=== PATIENT | male | born 1975 ===

== ENCOUNTER 2016-07-10 19:26 | Inpatient (IN) | payer OTHER ==
--- NOTE | 2016-07-10 21:21 | HP ---
CIWA Score - CIWA Score Nausea/Vomitin-Mild Nausea/No Vomiting Muscle Tremors: 4-Moderate,w/Arms Extend Anxiety: 4-Mod. Anxious/Guarded Agitation: 4-Moderately Restless Paroxysmal Sweats: 1-Minimal Palms Moist Orientation: 1-Uncertain about Date Tacttile Disturbances: 0-None Auditory Disturbances: 0-None Visual Disturbances: 0-None Headache: 0-None Present CIWA-Ar Total Score: 15 Admission ROS BHS - HPI Chief Complaint: WITHDRAWAL SX Allergies/Adverse Reactions: Allergies Allergy/AdvReac Type Severity Reaction Status Date / Time No Known Allergies Allergy Verified 02/04/16 16:00 History of Present Illness: 41 YEARS OLD MALE WITH LONG HISTORY OF ALCOHOL DEPENDENCE,HAS ARTHRITIS OF THE LEGS AND BACK, HAS DEPRESSION IS ADMITTED TO DETOX Exam Limitations: No Limitations - Ebola screening Have you traveled outside of the country in the last 21 days: No Have you had contact with anyone from an Ebola affected area: No Have you been sick,other than usual withdrawal symptoms: No Do you have a fever: No - Review of Systems Constitutional: Chills, Changes in sleep, Weight Stable EENT: reports: No Symptoms Reported Respiratory: reports: No Symptoms reported Cardiac: reports: No Symptoms Reported GI: reports: Nausea, Poor Fluid Intake, Vomiting, Abdominal cramping : reports: No Symptoms Reported Musculoskeletal: reports: Back Pain, Joint Pain (KNEES) Integumentary: reports: No Symptoms Reported Neuro: reports: Tremors Endocrine: reports: No Symptoms Reported Hematology: reports: No Symptoms Reported Psychiatric: reports: Judgement Intact, Anxious, Depressed Other Systems: Reviewed and Negative Patient History - Patient Medical History Hx Anemia: No Hx Asthma: No Hx Chronic Obstructive Pulmonary Disease (COPD): No Hx Cancer: No Hx Cardiac Disorders: No Hx Congestive Heart Failure: No Hx Hypertension: No Hx Hypercholesterolemia: No Hx Pacemaker: No HX Cerebrovascular Accident: No Hx Seizures: No Hx Dementia: No Hx Diabetes: No Hx Gastrointestinal Disorders: No Hx Liver Disease: No Hx Genitourinary Disorders: No Hx Sexually Transmitted Disorders: No Hx Renal Disease (ESRD): No Hx Thyroid Disease: No Hx Human Immunodeficiency Virus (HIV): No (NEG HX ) Hx Hepatitis C: No Hx Depression: Yes Hx Suicide Attempt: No Hx Bipolar Disorder: No Hx Schizophrenia: No - Patient Surgical History Past Surgical History: No - PPD History Previous Implant?: Yes Documented Results: Negative w/proof Implanted On Prior [facility] Admission?: Yes Date: 02/07/16 PPD to be Administered?: No - Smoking Cessation Smoking history: Never smoked Have you smoked in the past 12 months: No Aproximately how many cigarettes per day: 0 Hx Chewing Tobacco Use: No Initiated information on smoking cessation: No - Substance & Tx. History Hx Alcohol Use: Yes Hx Substance Use: No Substance Use Type: Alcohol Hx Substance Use Treatment: Yes - Substances Abused Alcohol Route: Oral Frequency: Daily Amount used: VOLKA 1L Age of first use: 18 Date of Last Use: 07/10/16 Family Disease History - Family Disease History Family Disease History: Diabetes: Father, Heart Disease: Father, Respiratory: Father Admission Physical Exam [facility] - Physical General Appearance: Yes: Nourished, Appropriately Dressed, Mild Distress, Alcohol on Breath, Tremorous, Irritable, Sweating, Anxious HEENTM: Yes: Hearing grossly Normal, Normal ENT Inspection, Normocephalic, Normal Voice Respiratory: Yes: Chest Non-Tender, Lungs Clear, Normal Breath Sounds, No Respiratory Distress, No Accessory Muscle Use Neck: Yes: Supple, Trachea in good position Breast: Yes: Breasts Symetrical Cardiology: Yes: Regular Rhythm, S1, S2, Tachycardia Abdominal: Yes: Non Tender, Soft Genitourinary: Yes: Within Normal Limits Back: Yes: Normal Inspection Musculoskeletal: Yes: full range of Motion, Gait Steady, Back pain Extremities: Yes: Normal Range of Motion, Non-Tender, Tremors Neurological: Yes: Alert, Motor Strength 5/5, Normal Response, Depressed Affect Integumentary: Yes: Warm Lymphatic: Yes: Within Normal Limits - Diagnostic (1) Alcohol dependence with uncomplicated withdrawal Current Visit: Yes Status: Acute (2) Arthritis Current Visit: Yes Status: Chronic Comment: BACK + LEGS (3) Anxiety Current Visit: Yes Status: Suspected Comment: PANIC ATTACK Cleared for Admission [facility] - Detox or Rehab [facility] Level of Care: Medically Managed Detox Regimen/Protocol: Librium [facility] Breath Alcohol Content Breath Alcohol Content: 0.416 Vital Signs - Vital Signs Vital Signs Refused: No Temperature: 98.6 F Temperature Source: Oral Pulse Rate: 119 Respiratory Rate: 20 Blood Pressure: 137/103 BP Location: Left Arm Blood Pressure Position: Sitting - Height Height: 5 ft 11 in - Weight Weight: 191 lb Weight Measurement Method: Standing Scale Body Mass Index (BMI): 26.6 - Bowel Function Bowel Movement: Yes Urine Drug Screen - Control Is Test Valid: Yes - Results Drug Screen Negative: Yes
[2016-07-10 21:22] VITALS: BMI 26.6
[2016-07-10] MEDS ORDERED: MAGNESIUM HYDROX 2400MG/30ML ORAL SUSPENSION 30 ML CUP PO PRN (21:27)
[2016-07-10] MEDS ORDERED: chlordiazePOXIDE HCL 25 MG CAPSULE PO ONE (21:27)
[2016-07-10] MEDS ORDERED: MAG HYDROX/AL HYDROX/SIMETH 30 ML UNIT-DOSE CUP PO PRN (21:27)
[2016-07-10] MEDS ORDERED: MENTHOL/PHENOL 1 EACH UD MM PRN (21:27)
[2016-07-10] MEDS ORDERED: MAGNESIUM CITRATE 300 ML BOTTLE PO PRN (21:27)
[2016-07-10] MEDS ORDERED: P-EPHED 60MG/TRIPROLIDI 2.5MG TABLET PO PRN (21:27)
[2016-07-10] MEDS ORDERED: ACETAMINOPHEN 325 MG TABLET (FP) PO PRN (21:27)
[2016-07-10] MEDS ORDERED: LOPERAMIDE HCL 2 MG CAPSULE PO PRN (21:27)
[2016-07-10] MEDS ORDERED: guaiFENesin/D-METHORPHAN HB 10 ML UNIT-DOSE CUPS PO PRN (21:27)
[2016-07-10] MEDS ORDERED: hydrOXYzine PAMOATE 50 MG CAPSULE (FP) PO PRN (21:27)
[2016-07-10] MEDS: diphenhydrAMINE HCL 50 MG CAPSULE PO PRN (22:22)
[2016-07-10] MEDS: chlordiazePOXIDE HCL 25 MG CAPSULE PO SCH (22:23)
[2016-07-10] MEDS: THIAMINE HCL 100 MG TABLET (FP) PO SCH (22:25)
[2016-07-11] MEDS: chlordiazePOXIDE HCL 25 MG CAPSULE PO SCH ×4 (05:32→22:42)
[2016-07-11] MEDS: chlordiazePOXIDE HCL 25 MG CAPSULE PO PRN (07:30)
--- NOTE | 2016-07-11 09:49 | PN ---
BHS CIWA - CIWA Score Nausea/Vomitin Muscle Tremors: 7-Severe,w/o Arm Extended Anxiety: 5 Agitation: 5 Paroxysmal Sweats: 4-Forehead w/Sweat Beads Orientation: 0-Oriented Tacttile Disturbances: 1-Very Mild Itch/Numbness Auditory Disturbances: 0-None Visual Disturbances: 0-None Headache: 0-None Present CIWA-Ar Total Score: 24 BHS Progress Note (SOAP) Subjective: Gross tremors,sweating,interrupted sleep,anxiety,restless. Objective: 07/11/16 09:49 Vital Signs - 8 hr 07/11/16 07/11/16 07/11/16 03:23 06:13 09:27 Temperature 98.4 F 97.1 F L Pulse Rate 112 H 107 H 109 H Respiratory 16 71 H Rate Blood Pressure 138/92 152/105 Assessment: 07/11/16 09:49 Withdrawal sx. Plan: Continue detox
[2016-07-11 10:02] LABS: URINE APPEARANCE CLEAR; URINE BILIRUBIN NEGATIVE (NEGATIVE); URINE COLOR YELLOW; URINE GLUCOSE (UA) NEGATIVE (NEGATIVE); URINE KETONE TRACE (NEGATIVE); URINE LEUK ESTERASE NEGATIVE (NEGATIVE); URINE NITRITE NEGATIVE (NEGATIVE); URINE UROBILINOGEN 2.0 E.U/dl E.U./dl (0.2-1.0)
[2016-07-11 10:20] LABS: ALK PHOS 71 U/L (45-117); ANION GAP 15 (8-16); BILIRUBIN,TOTAL 0.7 mg/dL (0.2-1.0); CALCIUM 9.5 mg/dL (8.5-10.1); CO2 24 mmol/L (21-32); COCKROFT - GAULT 129.68; CREATININE 0.9 mg/dL (0.7-1.3); GLUCOSE,RANDOM 101 mg/dL (74-106); SGOT/AST 170 U/L (15-37); SGPT/ALT 196 U/L (12-78); TOT PROT 7.2 g/dl (6.4-8.2)
[2016-07-11 10:28] LABS: MCH 34.9 pg (25.7-33.7); MCHC 34.3 g/dl (32.0-35.9); MEAN CELL VOLUME 101.8 fl (80-96); MEAN PLT VOLUME 8.7 fl (7.5-11.1); PLATELET COUNT 140 K/MM3 (134-434); RDW 13.7 % (11.9-15.9); WHITE BLOOD COUNT 3.3 K/mm3 (4.0-10.0)
[2016-07-11] MEDS: LIDOCAINE 5% TOPICAL PATCH TP SCH (10:57)
[2016-07-11] MEDS: PRENATAL VITAMINS W/ FOLIC ACID TABLET (FP) PO SCH (10:57)
--- NOTE | 2016-07-11 11:32 | CONSULT ---
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 Last drink on 07/10/16 Medical History: Significant for arthritis both knees, ankles and back Psychiatric History: Reports that when he left here early last January, he went to a place where he saw a psychologist. Claims that he was given some medication for anxiety but does not recall name. Reports feeling depressed at present but sleeps well Mental Status Exam - Mental Status Exam Alert and Oriented to: Time, Place, Person Cognitive Function: Fair Patient Appearance: Well Groomed Mood: Depressed Affect: Constricted Patient Behavior: Cooperative Speech Pattern: Clear Voice Loudness: Normal Thought Process: Intact, Goal Oriented Thought Disorder: Not Present Hallucinations: Denies Suicidal Ideation: Denies Homicidal Ideation: Denies Insight/Judgement: Poor Sleep: Well Appetite: Good Muscle strength/Tone: Normal Gait/Station: Normal Psychiatric Findings - Problem List ([place] 1, 2,3) (1) Alcohol-induced mood disorder Current Visit: Yes Status: Acute (2) Alcohol dependence with uncomplicated withdrawal Current Visit: Yes Status: Acute (3) Arthritis Current Visit: Yes Status: Chronic Comment: BACK + LEGS (4) Back spasm Current Visit: No Status: Acute - Initial Treatment Plan Initial Treatment Plan: Continue inpatient detoxification
--- NOTE | 2016-07-11 11:37 | EKG ---
Test Reason : Blood Pressure : / mmHG Vent. Rate : 099 BPM Atrial Rate : 099 BPM P-R Int : 152 ms QRS Dur : 084 ms QT Int : 348 ms P-R-T Axes : 061 035 061 degrees QTc Int : 446 ms NORMAL SINUS RHYTHM POSSIBLE LEFT ATRIAL ENLARGEMENT LEFT VENTRICULAR HYPERTROPHY ABNORMAL ECG NO PREVIOUS ECGS AVAILABLE Confirmed by LUIS CONRAD, ABRAHAM ([id number]) on 07/11/2016 11:36:44 AM Referred By: Alexis An Confirmed By:ABRAHAM SMITH MD
[2016-07-11 11:42] LABS: HIV 1 & 2 AB NEGATIVE; HIV 1 AGp24 NEGATIVE
[2016-07-11 12:18] LABS: URINE BLOOD 1+ (NEGATIVE); URINE PROTEIN 1+ (NEGATIVE)
[2016-07-11 12:21] LABS: URINE MUCUS RARE; URINE RBC 3 /hpf (0-3); URINE WBC 1 /hpf (3-5)
[2016-07-11] MEDS ORDERED: chlordiazePOXIDE HCL 25 MG CAPSULE PO ONE ×2 (14:00→22:55)
[2016-07-11] MEDS: THIAMINE HCL 100 MG TABLET (FP) PO SCH (22:42)
--- NOTE | 2016-07-11 23:55 | PN ---
BHS Progress Note Note: Last Vital Signs Temp Pulse Resp BP Pulse Ox 98.6 F 99 H 18 148/95 07/11/16 22:05 07/11/16 22:05 07/11/16 22:05 07/11/16 22:05
[2016-07-12] MEDS: chlordiazePOXIDE HCL 25 MG CAPSULE PO SCH ×3 (05:22→17:26)
[2016-07-12] MEDS: chlordiazePOXIDE HCL 25 MG CAPSULE PO PRN ×2 (09:06→14:13)
[2016-07-12] MEDS: LIDOCAINE 5% TOPICAL PATCH TP SCH (10:36)
[2016-07-12] MEDS: PRENATAL VITAMINS W/ FOLIC ACID TABLET (FP) PO SCH (10:36)
--- NOTE | 2016-07-12 14:10 | PN ---
[facility] CIWA - CIWA Score Nausea/Vomitin-No Nausea/No Vomiting Muscle Tremors: 4-Moderate,w/Arms Extend Anxiety: 4-Mod. Anxious/Guarded Agitation: 4-Moderately Restless Paroxysmal Sweats: 3 Orientation: 0-Oriented Tacttile Disturbances: 0-None Auditory Disturbances: 0-None Visual Disturbances: 0-None Headache: 0-None Present CIWA-Ar Total Score: 15 BHS Progress Note (SOAP) Subjective: Anxiety,tremors,sweating,interrupted sleep,restless. Objective: 07/12/16 14:08 Vital Signs - 8 hr 07/12/16 07/12/16 07/12/16 06:17 07:42 09:48 Temperature 98.2 F 97.8 F Pulse Rate 96 H 86 104 H Respiratory 18 18 Rate Blood Pressure 155/107 142/86 154/109 07/12/16 13:10 Temperature 96.6 F L Pulse Rate 105 H Respiratory 20 Rate Blood Pressure 140/96 Laboratory Tests 07/11/16 07/11/16 07/11/16 07:00 07:00 07:00 WBC 3.3 L D RBC 3.96 L Hgb 13.8 Hct 40.3 MCV 101.8 H MCHC 34.3 RDW 13.7 D Plt Count 140 MPV 8.7 Sodium 143 Potassium 3.6 Chloride 104 Carbon Dioxide 24 Anion Gap 15 BUN 14 Creatinine 0.9 Creat Clearance w eGFR > 60 Random Glucose 101 Calcium 9.5 Total Bilirubin 0.7 D AST 170 H D ALT 196 H Alkaline Phosphatase 71 D Ammonia Total Protein 7.2 Albumin 4.0 Urine Color Urine Appearance Urine pH Ur Specific [place] Urine Protein Urine Glucose (UA) Urine Ketones Urine Blood Urine Nitrite Urine Bilirubin Urine Urobilinogen Ur Leukocyte Esterase Urine RBC Urine WBC Ur Epithelial Cells Urine Mucus RPR Titer Nonreactive HIV 1&2 Antibody Screen HIV P24 Antigen 07/11/16 07/11/16 07/12/16 07:00 08:00 07:00 WBC RBC Hgb Hct MCV MCHC RDW Plt Count MPV Sodium Potassium Chloride Carbon Dioxide Anion Gap BUN Creatinine Creat Clearance w eGFR Random Glucose Calcium Total Bilirubin AST ALT Alkaline Phosphatase Ammonia 92.13 H Total Protein Albumin Urine Color Yellow Urine Appearance Clear Urine pH 5.0 D Ur Specific [place] >= 1.030 H Urine Protein 1+ H Urine Glucose (UA) Negative Urine Ketones Trace H Urine Blood 1+ H Urine Nitrite Negative Urine Bilirubin Negative Urine Urobilinogen 2.0 e.u/dl Ur Leukocyte Esterase Negative Urine RBC 3 Urine WBC 1 Ur Epithelial Cells Rare Urine Mucus Rare RPR Titer HIV 1&2 Antibody Screen Negative HIV P24 Antigen Negative labs noted Assessment: 07/12/16 14:09 Withdrawal sx. Plan: Continue detox
[2016-07-12] MEDS: LACTULOSE 20 GM/30 ML UDC (FOR ORAL USE ONLY) PO SCH ×2 (15:35→23:06)
[2016-07-12] MEDS: cloNIDine HCL 0.1 MG TABLET PO PRN ×2 (20:41)
[2016-07-12] MEDS: NAPROXEN 500 MG TABLET (FP) PO PRN (20:43)
[2016-07-12] MEDS: THIAMINE HCL 100 MG TABLET (FP) PO SCH (23:06)
[2016-07-12] MEDS: chlordiazePOXIDE 5 MG CAPSULE PO SCH (23:06)
[2016-07-12] MEDS: diphenhydrAMINE HCL 50 MG CAPSULE PO PRN (23:07)
[2016-07-13] MEDS: chlordiazePOXIDE 5 MG CAPSULE PO SCH ×3 (05:38→17:48)
[2016-07-13] MEDS: CYCLOBENZAPRINE HCL 10 MG TABLET (FP) PO PRN ×2 (08:02→17:48)
[2016-07-13 10:20] LABS: SGOT/AST 78 U/L (15-37); SGPT/ALT 142 U/L (12-78)
[2016-07-13] MEDS: LIDOCAINE 5% TOPICAL PATCH TP SCH (10:38)
[2016-07-13] MEDS: PRENATAL VITAMINS W/ FOLIC ACID TABLET (FP) PO SCH (10:39)
[2016-07-13] MEDS: LACTULOSE 20 GM/30 ML UDC (FOR ORAL USE ONLY) PO SCH ×2 (10:40→22:37)
[2016-07-13] MEDS: cloNIDine HCL 0.1 MG TABLET PO PRN ×2 (13:39→22:38)
--- NOTE | 2016-07-13 17:36 | PN ---
BHS Progress Note (SOAP) Subjective: Interrupted sleep, Tremors, Body Aches, Anxious. Objective: PT. A & O X 3, OBSERVED AMBULATING ON UNIT. PT. DENIES CHEST PAIN. 07/13/16 17:33 Vital Signs Temperature 98.2 F 07/13/16 13:02 Pulse Rate 95 H 07/13/16 13:02 Respiratory Rate 18 07/13/16 13:02 Blood Pressure 130/95 07/13/16 13:02 O2 Sat by Pulse Oximetry (%) Laboratory Tests 07/11/16 07/11/16 07/11/16 07:00 07:00 07:00 WBC 3.3 L D RBC 3.96 L Hgb 13.8 Hct 40.3 MCV 101.8 H MCHC 34.3 RDW 13.7 D Plt Count 140 MPV 8.7 Sodium 143 Potassium 3.6 Chloride 104 Carbon Dioxide 24 Anion Gap 15 BUN 14 Creatinine 0.9 Creat Clearance w eGFR > 60 Random Glucose 101 Calcium 9.5 Total Bilirubin 0.7 D AST 170 H D ALT 196 H Alkaline Phosphatase 71 D Ammonia Total Protein 7.2 Albumin 4.0 Urine Color Urine Appearance Urine pH Ur Specific [place] Urine Protein Urine Glucose (UA) Urine Ketones Urine Blood Urine Nitrite Urine Bilirubin Urine Urobilinogen Ur Leukocyte Esterase Urine RBC Urine WBC Ur Epithelial Cells Urine Mucus RPR Titer Nonreactive HIV 1&2 Antibody Screen HIV P24 Antigen 07/11/16 07/11/16 07/12/16 07:00 08:00 07:00 WBC RBC Hgb Hct MCV MCHC RDW Plt Count MPV Sodium Potassium Chloride Carbon Dioxide Anion Gap BUN Creatinine Creat Clearance w eGFR Random Glucose Calcium Total Bilirubin AST ALT Alkaline Phosphatase Ammonia 92.13 H Total Protein Albumin Urine Color Yellow Urine Appearance Clear Urine pH 5.0 D Ur Specific [place] >= 1.030 H Urine Protein 1+ H Urine Glucose (UA) Negative Urine Ketones Trace H Urine Blood 1+ H Urine Nitrite Negative Urine Bilirubin Negative Urine Urobilinogen 2.0 e.u/dl Ur Leukocyte Esterase Negative Urine RBC 3 Urine WBC 1 Ur Epithelial Cells Rare Urine Mucus Rare RPR Titer HIV 1&2 Antibody Screen Negative HIV P24 Antigen Negative 07/13/16 07/13/16 07:50 07:50 WBC RBC Hgb Hct MCV MCHC RDW Plt Count MPV Sodium Potassium Chloride Carbon Dioxide Anion Gap BUN Creatinine Creat Clearance w eGFR Random Glucose Calcium Total Bilirubin AST 78 H D ALT 142 H D Alkaline Phosphatase Ammonia 57.09 H Total Protein Albumin Urine Color Urine Appearance Urine pH Ur Specific [place] Urine Protein Urine Glucose (UA) Urine Ketones Urine Blood Urine Nitrite Urine Bilirubin Urine Urobilinogen Ur Leukocyte Esterase Urine RBC Urine WBC Ur Epithelial Cells Urine Mucus RPR Titer HIV 1&2 Antibody Screen HIV P24 Antigen LABS NOTED. [facility]MON[facility] LEVEL FROM 07/13/2016 NOTED. 07/13/16 17:35 Assessment: 07/13/16 17:35 WITHDRAWAL SYMPTOMS. Plan: CONTINUE DETOX. ADVISED PATIENT TO FOLLOW-UP WITH DIRECTOR OF TRAUMA AFTER DISCHARGE FROM DETOX FOR GENERAL MEDICAL ASSESSMENT AND FOR ELEVATED ADMISSION [facility]EL.
[2016-07-13] MEDS: NAPROXEN 500 MG TABLET (FP) PO PRN (19:40)
[2016-07-13] MEDS: THIAMINE HCL 100 MG TABLET (FP) PO SCH (22:37)
[2016-07-13] MEDS: chlordiazePOXIDE HCL 10 MG CAPSULE PO SCH (22:37)
[2016-07-14] MEDS: chlordiazePOXIDE HCL 10 MG CAPSULE PO SCH (05:39)
[2016-07-14] MEDS: CYCLOBENZAPRINE HCL 10 MG TABLET (FP) PO PRN (05:40)
[2016-07-14] MEDS: cloNIDine HCL 0.1 MG TABLET PO PRN (05:40)
[2016-07-14 09:19] VITALS: BP 142/100; PULSE 77; TEMP 96.4
--- NOTE | 2016-07-14 13:15 | DS ---
[facility] Detox Discharge Summary Admission Date: 07/10/16 Discharge Date: 07/14/16 - History Present History: Alcohol Dependence Pertinent Past History: Denies pmhx - Physical Exam Results Vital Signs: Vital Signs Temperature 96.4 F L 07/14/16 09:18 Pulse Rate 77 07/14/16 09:18 Respiratory Rate 18 07/14/16 09:18 Blood Pressure 142/100 07/14/16 09:18 O2 Sat by Pulse Oximetry (%) Pertinent Admission Physical Exam Findings: Withdrawal symptoms Laboratory Tests 07/11/16 07/11/16 07/11/16 07:00 07:00 07:00 WBC 3.3 L D RBC 3.96 L Hgb 13.8 Hct 40.3 MCV 101.8 H MCHC 34.3 RDW 13.7 D Plt Count 140 MPV 8.7 Sodium 143 Potassium 3.6 Chloride 104 Carbon Dioxide 24 Anion Gap 15 BUN 14 Creatinine 0.9 Creat Clearance w eGFR > 60 Random Glucose 101 Calcium 9.5 Total Bilirubin 0.7 D AST 170 H D ALT 196 H Alkaline Phosphatase 71 D Ammonia Total Protein 7.2 Albumin 4.0 Urine Color Urine Appearance Urine pH Ur Specific [place] Urine Protein Urine Glucose (UA) Urine Ketones Urine Blood Urine Nitrite Urine Bilirubin Urine Urobilinogen Ur Leukocyte Esterase Urine RBC Urine WBC Ur Epithelial Cells Urine Mucus RPR Titer Nonreactive HIV 1&2 Antibody Screen HIV P24 Antigen 07/11/16 07/11/16 07/12/16 07:00 08:00 07:00 WBC RBC Hgb Hct MCV MCHC RDW Plt Count MPV Sodium Potassium Chloride Carbon Dioxide Anion Gap BUN Creatinine Creat Clearance w eGFR Random Glucose Calcium Total Bilirubin AST ALT Alkaline Phosphatase [place] 92.13 H Total Protein Albumin Urine Color Yellow Urine Appearance Clear Urine pH 5.0 D Ur Specific [place] >= 1.030 H Urine Protein 1+ H Urine Glucose (UA) Negative Urine Ketones Trace H Urine Blood 1+ H Urine Nitrite Negative Urine Bilirubin Negative Urine Urobilinogen 2.0 e.u/dl Ur Leukocyte Esterase Negative Urine RBC 3 Urine WBC 1 Ur Epithelial Cells Rare Urine Mucus Rare RPR Titer HIV 1&2 Antibody Screen Negative HIV P24 Antigen Negative 07/13/16 07/13/16 07:50 07:50 WBC RBC Hgb Hct MCV MCHC RDW Plt Count MPV Sodium Potassium Chloride Carbon Dioxide Anion Gap BUN Creatinine Creat Clearance w eGFR Random Glucose Calcium Total Bilirubin AST 78 H D ALT 142 H D Alkaline Phosphatase Ammonia 57.09 H Total Protein Albumin Urine Color Urine Appearance Urine pH Ur Specific [place] Urine Protein Urine Glucose (UA) Urine Ketones Urine Blood Urine Nitrite Urine Bilirubin Urine Urobilinogen Ur Leukocyte Esterase Urine RBC Urine WBC Ur Epithelial Cells Urine Mucus RPR Titer HIV 1&2 Antibody Screen HIV P24 Antigen Labs noted - Treatment Hospital Course: Detox Protocol Followed, Detoxed Safely, Responded well, Discharged Condition Good - Medication Discharge Medications: Ambulatory Orders Cyclobenzaprine HCl [Flexeril -] 10 mg PO TID PRN #20 tablet 06/13/15 Naproxen [Naprosyn -] 500 mg PO BID PRN #20 tablet 06/13/15 NK [No Known Home Medication] 02/04/16 - Diagnosis (1) Alcohol dependence with uncomplicated withdrawal Status: Acute (2) Depression Status: Chronic - AMA Did Patient Leave Against Medical Advice: No
[2016-07-14 18:11] LABS: URINE APPEARANCE CLEAR; URINE BILIRUBIN NEGATIVE (NEGATIVE); URINE BLOOD NEGATIVE (NEGATIVE); URINE COLOR DKYELLOW; URINE GLUCOSE (UA) NEGATIVE (NEGATIVE); URINE KETONE NEGATIVE (NEGATIVE); URINE LEUK ESTERASE NEGATIVE (NEGATIVE); URINE NITRITE NEGATIVE (NEGATIVE); URINE PROTEIN NEGATIVE (NEGATIVE); URINE UROBILINOGEN NEGATIVE E.U./dl (0.2-1.0)
== END 2016-07-14 09:15 | disposition home or self-care (01) | DRG 775 ==
LOC: YASAS 19:26 → Y3N 21:46
PROVIDERS: ADMIT Internal Medicine Addiction Medicine; ATTEND Internal Medicine
PROC: HZ2ZZZZ Detoxification Services for Substance Abuse Treatment (ICD-10-PCS; principal; 2016-07-10)
DX: F10.230 Alcohol dependence with withdrawal, uncomplicated (principal); F10.24 Alcohol dependence with alcohol-induced mood disorder; F32.9 Major depressive disorder, single episode, unspecified; F41.0 Panic disorder [episodic paroxysmal anxiety]; M17.0 Bilateral primary osteoarthritis of knee; M19.072 Primary osteoarthritis, left ankle and foot; M19.071 Primary osteoarthritis, right ankle and foot; R00.0 Tachycardia, unspecified
CPT/HCPCS: 36415; 80053; 81003; 81015; 82140; 84450; 84460; 85027; 86593; 87389; 93005; 93010